=== PATIENT | male | born 1930 | race Caucasian/White ===

== ENCOUNTER 2017-06-14 19:40 | Emergency (ER) | payer OTHER ==
[2017-06-14 19:52] VITALS: TEMP 97.9
--- NOTE | 2017-06-14 20:27 | EDPHY ---
General Time Seen by Provider: 06/14/17 20:19 Narrative: CHIEF COMPLAINT: Fall, shoulder pain HISTORY OF PRESENT ILLNESS: Patient reports right shoulder pain status post fall. He was working on his vehicle at his residence when he lost his balance and fell. He was unable to stop himself with his right arm and sustained scrapes to the right thumb and right knee. He denies any head strike or loss of conscious. No headache. No neck, chest, back or abdominal pain. He has severe pain in the right shoulder when he attempts to move it. It is over the proximal humerus. His pain is minimal if he holds the arm still. No numbness or tingling. No weakness. No injury elsewhere. No other associated complaints or modifying factors. ESTABLISHED ORTHOPEDIST: None REVIEW OF SYSTEMS: Ten systems reviewed and are negative unless otherwise noted in the HPI PAST MEDICAL HISTORY: Glaucoma PAST SURGICAL HISTORY: No recent surgeries SOCIAL HISTORY: Nonsmoker. Lives independently with his spouse here in [place] FAMILY HISTORY: Noncontributory EXAMINATION General Appearance: Alert, no distress HEENT: Normocephalic and atraumatic. Pupils equal round reactive. No evidence of basilar skull fracture Neck: Supple nontender. Painless range of motion all planes Cardiovascular: Regular rhythm. No murmur. Pulses normal throughout. Brisk cap refill Neurological: A&O, sensory symmetric, strength symmetric. No wrist drop Skin: Warm and dry, no rash. Superficial abrasions to the right thumb on the palmar side and the anterior right knee. No repairable lacerations. Extremities: Moderate tenderness of the right humeral neck and head. No tenderness of the right clavicle or scapula. Range of motion not tested due to severe pain. Range of motion of the right elbow and wrist are intact and symmetric to the left. Neurovascular intact distal to the right shoulder pain Psychiatric: Mood and affect normal DIFFERENTIAL DIAGNOSES: Including but not limited to humeral fracture, shoulder sprain, clavicle fracture, AC separation, scapular fracture, abrasions MDM: 8:25 p.m. Mechanical fall with acute right shoulder pain. Patient cannot ranges shoulder without significant pain. He is neurovascular intact distal to this. Suspect humeral neck fracture by history exam. No injury elsewhere that requires imaging. Superficial lacerations to the right thumb of the right knee that do not require suture repair. X-ray has been ordered and he does not require medication at this time. 9:15 p.m. X-ray as reviewed by me reveals no obvious fracture. No dislocation. I reviewed the x-ray with Dr. Fernandez as well. 9:30 p.m. Patient re-evaluated. I discussed the negative findings on the x-ray. I discussed placing him in a sling for comfort, with instructions to remove this at bedtime and periodically throughout the day. We discussed ice, anti- inflammatories and follow up with primary care physician. He informed me that he are he contact his primary care physician and should have an appointment tomorrow morning with him. I also have referred him to the on-call orthopedist for definitive care. We discussed ED precautions and he and his spouse are comfortable with this plan. Discharged home stable condition. SUPERVISION: Patient was independently examined, but I discussed the case with my secondary supervising physician Dr. Fernandez ED Precautions: Worsening pain. Erythema, edema, cyanosis, pallor, paresthesia or anesthesia. - Diagnostics Imaging Results: Imaging Impressions Shoulder X-Ray 06/14/17 20:27 Impression: 1. No acute osseous abnormalities. 2. Probable calcific tendinosis at the rotator cuff insertion. 3. Moderate acromioclavicular hypertrophic osteoarthrosis. - History Smoking Status: Never smoked - Objective Vital Signs: Initial Vital Signs Temperature (C) 97.9 F 06/14/17 19:49 Heart Rate 87 06/14/17 19:49 Respiratory Rate 16 06/14/17 19:49 Blood Pressure 198/93 H 06/14/17 19:49 O2 Sat (%) 93 06/14/17 19:49 O2 Delivery Mode Room Air Allergies/Adverse Reactions: ANTIHISTAMINES Allergy (Severe, Uncoded 05/18/14 00:18) UNABLE TO URINATE "ANTIBIOTICS" Allergy (Uncoded 05/18/14 00:18) Home Medications: Medication Instructions Recorded Bimatoprost 0.03% [LUMIGAN 0.03% 0 drops EACHEYE HS 10/29/11 (RX)] Departure - Departure Disposition: Home, Routine, Self-Care Clinical Impression: Sprain of shoulder, right Qualifiers: Encounter type: initial encounter Shoulder sprain type: unspecified sprain Qualified Code(s): S43.401A - Unspecified sprain of right shoulder joint, initial encounter Condition: Good Instructions: Shoulder Sprain (ED) Additional Instructions: 1. Shoulder sling as tolerated and needed. Do not sleep in this 2. Contact primary care physician in the morning to be evaluated on Sunday 3. Follow up with Orthopedics for definitive care 4. ED precautions as discussed Referrals: Karan Garland MD [Primary Care Provider] - As per Instructions Claire Manzano MD [Medical Doctor] - As per Instructions
[2017-06-14 22:26] VITALS: BP 160/90; PULSE 80; RESP 20; O2SAT 94
== END 2017-06-14 22:25 | disposition home or self-care (01) ==
DX: S43.401A Unspecified sprain of right shoulder joint, initial encounter (principal); W01.0XXA Fall on same level from slipping, tripping and stumbling without subsequent striking against object, initial encounter; Y92.009 Unspecified place in unspecified non-institutional (private) residence as the place of occurrence of the external cause; Y99.0 Civilian activity done for income or pay; Y93.89 Activity, other specified